=== PATIENT | female | born 1965 | race Two or more races ===

== ENCOUNTER 2022-04-17 17:58 | Emergency (ER) | payer OTHER ==
[~2022-04-17] VITALS: Ht 149.9 cm; Wt 103.4 kg
[2022-04-17] MEDS ORDERED: SYNTHROID50 MCG (18:41)
[2022-04-17] MEDS ORDERED: CELEBREX100 MG PO (22:07)
== END 2022-04-17 22:33 | disposition home or self-care (01) ==
LOC: ER 17:58
DX: M77.8 Other enthesopathies, not elsewhere classified (principal)